=== PATIENT | female | born 1975 | race Caucasian/White ===

== ENCOUNTER 2021-01-05 17:43 | Emergency (ER) | payer OTHER ==
[~2021-01-05] VITALS: Ht 157.5 cm; Wt 68.0 kg
[2021-01-05] MEDS ORDERED: CASIRIVIMAB/IMDEVIMAB 10 ML in SODIUM CHLORIDE 0.9% 100 ML IV ONE (18:30)
[2021-01-05 20:30] VITALS: BP 143/92
[2021-01-05] MEDS ORDERED: ACETAMINOPHEN 325 MG TAB PO ONE (20:45)
== END 2021-01-05 20:37 | disposition home or self-care (01) ==
LOC: ER 18:16
DX: R05 Cough (principal); U07.1 COVID-19; I10 Essential (primary) hypertension; E03.9 Hypothyroidism, unspecified; F41.9 Anxiety disorder, unspecified; G35 Multiple sclerosis; F31.9 Bipolar disorder, unspecified
CPT/HCPCS: 99283; J7050